=== PATIENT | male | born 1955 | race Caucasian/White ===

== ENCOUNTER 2023-05-23 11:04 | Emergency (ER) | payer MEDICARE, MEDICAID ==
[~2023-05-23] VITALS: Ht 182.9 cm; Wt 85.7 kg
[~2023-05-23 11:04] MED LIST: ALBU18HF2 INH; PRED50TA PO
[2023-05-23] MEDS ORDERED: NAPR-56 PO (11:21)
[2023-05-23] MEDS ORDERED: ketorolac trometh inj. 60 MG/2 ML VIAL IM ONE (11:25)
[2023-05-23 11:32] VITALS: BP 181/89; PULSE 100; RESP 16; TEMP 98.6; O2SAT 95
== END 2023-05-23 11:34 | disposition home or self-care (01) ==
LOC: ER 11:05
DX: S43.084A Other dislocation of right shoulder joint, initial encounter (principal); X58.XXXA Exposure to other specified factors, initial encounter; Y93.89 Activity, other specified; Y92.89 Other specified places as the place of occurrence of the external cause; Y99.8 Other external cause status
CPT/HCPCS: 23650; 96372; 99284; J1885; A4565